=== PATIENT | male | born 1965 | race Caucasian/White ===

== ENCOUNTER 2020-04-14 03:55 | Emergency (ER) | payer OTHER ==
[~2020-04-14] VITALS: Ht 172.7 cm; Wt 85.3 kg
[2020-04-14 04:01] VITALS: BP 155/79
--- NOTE | 2020-04-14 04:12 | NUR ---
PT TAKEN TO BED 11
[2020-04-14] MEDS ORDERED: ACETAMINOPHEN EXTRA STRENGTH 500 MG TAB PO ONE (04:15)
[2020-04-14] MEDS ORDERED: KETOROLAC 15 MG/ML VIAL IM ONE (04:15)
--- NOTE | 2020-04-14 04:15 | NUR ---
C/O RT FLANK PAIN X 2 HRS + VOMIT X 2 EPISODES. GI: ABD IS SOFT, ROUND, NONTENDER, ACTIVE BS. DENIES ANY BLOOD IN HIS VOMIT. +NAUSEA. : +RT FLANK PAIN, +DYSURIA, + BURNING SENSATION WHEN URINATING, + BLOOD IN THE URINE, URINE APPEARANCE SHOWED BLOODY RED. TOOK IBUPROFEN 3HRS AGO WITH NO RELIEF. 10/10 PAIN AND DESCRIBES IT PRESSURE. A&O X4. STEADY GAIT. VSS. PMH: DENIES NKA
[2020-04-14 04:43] LABS: APPEARANCE,URINE CLOUDY (CLEAR); BILIRUBIN,URINE 1+ (NEGATIVE); BLOOD, URINE 3+ (NEGATIVE); COLOR,URINE ORANGE (YELLOW); LEUKOCYTE ESTERASE ,URINE NEGATIVE (NEGATIVE); NITRITE, URINE POSITIVE (NEGATIVE); UGLUCOSE TRACE (NEGATIVE)
--- NOTE | 2020-04-14 04:45 | NUR ---
PT TAKEN TO CT VIA W/C. BLOOD TAKEN TO LAB AT THIS TIME.
--- NOTE | 2020-04-14 04:45 | NUR ---
Yovani ram in ED - 04/14/20 at 0446 by [facility] PT TAKEN TO CT VIA W/Janet MORENO TAKEN TO LAB AT THIS TIME.
[2020-04-14] MEDS ORDERED: cefTRIAXone 1,000 MG VIAL ONE (04:48)
--- NOTE | 2020-04-14 04:48 | NUR ---
PT RETURNED FROM CT VIA W/C
[2020-04-14 04:52] LABS: BASOPHILS % (AUTO) 0.3 % (0.0-2.0); EOSINOPHILS # (AUTO) 0.1 K/uL (0-0.4); EOSINOPHILS % (AUTO) 1.4 % (0.0-4.0); HEMATOCRIT 45.3 % (36-52); HEMOGLOBIN 15.5 g/dL (12.0-18.0); LYMPHOCYTES # (AUTO) 1.5 K/uL (2.0-11.5); LYMPHOCYTES % (AUTO) 25.9 % (20.5-51.1); MEAN CORPUSCULAR HEMOGLOBIN 30 pg (27-31); MEAN CORPUSCULAR HGB CONC 34 g/dL (33-37); MEAN CORPUSCULAR VOLUME 86.8 fL (80-94); MONOCYTES # (AUTO) 0.6 K/uL (0.8-1.0); MONOCYTES % (AUTO) 10.2 % (1.7-9.3); NEUTROPHILS # (AUTO) 3.6 K/uL (1.8-7.7); NEUTROPHILS % (AUTO) 62.2 % (42.2-75.2); PLATELET COUNT (AUTO) 192 K/uL (140-450); RED BLOOD CELL COUNT(AUTO) 5.21 MIL/uL (4.20-6.10); RED CELL DISTRIBUTION WIDTH 12.8 % (11.6-13.7); WHITE BLOOD COUNT (AUTO) 5.8 K/uL (4.8-10.8)
[2020-04-14 05:06] LABS: ANION GAP 16.5 (8-16); CARBON DIOXIDE 24.3 mmol/L (21-32); CREATININE 1.3 mg/dL (0.6-1.3); POTASSIUM 3.8 mmol/L (3.5-5.1)
[2020-04-14 05:20] LABS: ALBUMIN 3.9 g/dL (3.4-5.0); TOTAL BILIRUBIN 0.9 mg/dL (0.0-1.0)
[2020-04-14 05:28] LABS: RBC,URINE TOO NUMEROUS TO COUN /HPF (0-5); WBC,URINE 0-5 /HPF (0-5)
[2020-04-14 06:09] VITALS: BP 136/81
--- NOTE | 2020-04-14 06:09 | NUR ---
Patient discharged with v/s stable. Written and verbal after care instructions given and explained. Patient alert, oriented and verbalized understanding of instructions. Ambulatory with steady gait. All questions addressed prior to discharge. ID band removed. Patient advised to follow up with PMD. Rx of NORCO, MOTRIN, AND CEPHALEXIN given. Patient educated on indication of medication including possible reaction and side effects. Opportunity to ask questions provided and answered.
== END 2020-04-14 06:09 | disposition home or self-care (01) ==
LOC: MED 03:55
DX: N39.0 Urinary tract infection, site not specified (principal); N20.0 Calculus of kidney
CPT/HCPCS: 36415; 74176; 80053; 81001; 83605; 85025; 87040; 87086; 96372; 99284; J0696; J1885